=== PATIENT | male | born 1990 | race Asian ===

== ENCOUNTER 2019-11-14 07:57 | Emergency (ER) | payer OTHER ==
[~2019-11-14] VITALS: Ht 177.8 cm; Wt 93.9 kg
[2019-11-14 08:06] VITALS: Ht 177.8 cm; Wt 93.9 kg
[2019-11-14 08:33] LABS: BASOPHIL % 0.3 % (0-2); PLATELET COUNT 351 x10^3mcL (130-400); RED CELL DISTRIBUTION WIDTH 12.9 % (11.5-14.5)
[2019-11-14 08:41] LABS: CALCIUM 9.2 mg/dL (8.5-10.1); CARBON DIOXIDE 23.1 mmol/L (21-32); CHLORIDE SERUM 101 mmol/L (98-107); CREATININE SERUM 1.4 mg/dL (0.7-1.3); GFR1 > 60 mL/min; GLUCOSE SERUM 131 mg/dL (74-106); POTASSIUM SERUM 3.9 mmol/L (3.5-5.1); SODIUM SERUM 137 mmol/L (136-145)
[2019-11-14 08:45] LABS: ALBUMIN 4.2 g/dL (3.4-5.0); ALKALINE PHOSPHATASE 79 U/L (46-116); ALT/SGPT 63 U/L (16-63); AMYLASE 75 U/L (25-115); AST/SGOT 28 U/L (15-37); BILIRUBIN TOTAL 0.3 mg/dL (0.20-1.00); LIPASE 102 IU/L (73-393)
[2019-11-14 10:30] VITALS: BP 133/81
== END 2019-11-14 10:30 | disposition home or self-care (01) ==
LOC: ED 07:57
DX: N23 Unspecified renal colic (principal); J45.909 Unspecified asthma, uncomplicated
CPT/HCPCS: J2270; J2405; J7030